=== PATIENT | female | born 1960 | race African-American/Black ===

== ENCOUNTER 2018-01-02 07:21 | Emergency (ER) | payer MEDICARE, MEDICAID ==
[~2018-01-02] VITALS: Ht 170.2 cm; Wt 61.2 kg
[~2018-01-02 07:21] MED LIST: NORCO1 E1 ORAL; PROAIR HFA8.5 GM INH; PROMETHAZINE-C118 M1 ORAL; QVAR7.3 GM INH; SOMA350 MG PO
[2018-01-02 07:35] VITALS: BP 106/65
[2018-01-02] MEDS ORDERED: Albuterol/Ipratropium 3ml neb HHN ONE (08:00)
--- NOTE | 2018-01-02 08:58 | Emergency Room Report ---
History of Present Illness General Chief Complaint: Edema Source: Patient Present Illness HPI Patient is a 57-year-old female presented after increased bilateral lower extremity swelling. Patient reported having gradual onset of swelling which was worse last night. Patient reports having elevated her legs and this had somewhat improved. Patient denies recent trauma. She reports having some chronic low back pain for which she wears a abdominal binder. The patient stated that she had previously been told this was neurogenic edema by her prior physician.Patient denies any vomiting. She denies any shortness of breath. She had not been having any fever. She denied lower extremity pain.She reports having prior history of low back surgery, Gastric bypass as well as prior hysterectomy. Allergies: Coded Allergies: HYDROMORPHONE (Unverified Allergy, Unknown, 02/22/16) MORPHINE (Unverified Allergy, Unknown, 02/22/16) Patient History Past Medical History: see triage record Past Surgical History: unable to obtain Reviewed Nursing Documentation: PMH: Agreed; PSxH: Agreed Review of Systems All Other Systems: negative except mentioned in HPI Physical Exam Vital Signs Date Time Temp Pulse Resp B/P (MAP) Pulse Ox O2 Delivery O2 Flow Rate FiO2 01/02/18 07:25 98.6 88 20 147/71 97 Room Air 98.6 01/02/18 08:13 21 Sp02 EP Interpretation: reviewed, normal General Appearance: normal inspection, well appearing, no apparent distress, alert, GCS 15 Head: atraumatic ENT: normal ENT inspection, hearing grossly normal, normal voice Neck: normal inspection, full range of motion, supple, no bony tend Respiratory: normal inspection, lungs clear, no respiratory distress, no retraction, wheezing Cardiovascular #1: regular rate, rhythm, edema Gastrointestinal: normal inspection, normal bowel sounds, non tender, soft, no guarding, no hernia Genitourinary: no CVA tenderness Musculoskeletal: normal inspection, back normal, normal range of motion Neurologic: normal inspection, alert, oriented x3, responsive, speech normal Psychiatric: normal inspection, judgement/insight normal, mood/affect normal Skin: normal inspection, normal color, no rash Medical Decision Making Diagnostic Impression: Primary Impression: Chronic back pain Additional Impressions: Anemia Pedal edema ER Course Patient presented for bilateral leg pain and swelling.Differential diagnosis included was not limited to obstruction, nephrotic syndrome, CHF, DVT among others.Because of complexity of patient's case laboratory testing and imaging studies were ordered. Laboratory testing was notable for the anemia which was the significant. Patient was advised to laboratory testing. The BNP was also noted to be somewhat elevated. I recommended that patient be admitted for further hemoglobin monitoring and reevaluation and she stated that she did not want to be admitted to the hospital. Patient was given prescription for iron pills. Patient is advised to return if she changed her mind. The patient is advised to follow up with primary care doctor in 1-2 days. Patient is advised to return if any worsening condition or if any changes in status that are concerning. This report is dictated with [employer] shared services representative software which may occasionally lead to discrepancies related to use of this software. Laboratory Tests Test 01/02/18 08:10 01/02/18 09:20 White Blood Count 5.5 K/UL (4.8-10.8) 5.3 K/UL (4.8-10.8) Red Blood Count 2.72 M/UL (4.20-5.40) L 2.63 M/UL (4.20-5.40) L Hemoglobin 8.0 G/DL (12.0-16.0) L 7.9 G/DL (12.0-16.0) L Hematocrit 26.9 % (37.0-47.0) L 26.1 % (37.0-47.0) L Mean Corpuscular Volume 99 FL (80-99) 99 FL (80-99) Mean Corpuscular Hemoglobin 29.3 PG (27.0-31.0) 30.0 PG (27.0-31.0) Mean Corpuscular Hemoglobin Concent 29.7 G/DL (32.0-36.0) L 30.3 G/DL (32.0-36.0) L Red Cell Distribution Width 16.9 % (11.6-14.8) H 16.9 % (11.6-14.8) H Platelet Count 458 K/UL (150-450) H 454 K/UL (150-450) H Mean Platelet Volume 5.9 FL (6.5-10.1) L 5.6 FL (6.5-10.1) L Neutrophils (%) (Auto) 72.6 % (45.0-75.0) % (45.0-75.0) Lymphocytes (%) (Auto) 18.5 % (20.0-45.0) L % (20.0-45.0) Monocytes (%) (Auto) 5.3 % (1.0-10.0) % (1.0-10.0) Eosinophils (%) (Auto) 1.7 % (0.0-3.0) % (0.0-3.0) Basophils (%) (Auto) 1.9 % (0.0-2.0) % (0.0-2.0) Sodium Level 138 MMOL/L (136-145) Potassium Level 4.0 MMOL/L (3.5-5.1) Chloride Level 105 MMOL/L (98-107) Carbon Dioxide Level 26 MMOL/L (21-32) Anion Gap 8 mmol/L (5-15) Blood Urea Nitrogen 13 mg/dL (7-18) Creatinine 1.1 MG/DL (0.55-1.30) Estimate Glomerular Filtration Rate > 60 mL/min (>60) Glucose Level 91 MG/DL (74-106) Calcium Level 8.5 MG/DL (8.5-10.1) Total Bilirubin 0.2 MG/DL (0.2-1.0) Aspartate Amino Transferase (AST) 28 U/L (15-37) Alanine Aminotransferase (ALT) 35 U/L (12-78) Alkaline Phosphatase 72 U/L (46-116) Troponin I 0.000 ng/mL (0.000-0.056) Pro-B-Type Natriuretic Peptide 383 pg/mL (0-125) H Total Protein 7.0 G/DL (6.4-8.2) Albumin 3.3 G/DL (3.4-5.0) L Globulin 3.7 g/dL Albumin/Globulin Ratio 0.9 (1.0-2.7) L Differential Total Cells Counted 100 Neutrophils % (Manual) 71 % (45-75) Lymphocytes % (Manual) 18 % (20-45) L Monocytes % (Manual) 9 % (1-10) Eosinophils % (Manual) 1 % (0-3) Basophils % (Manual) 1 % (0-2) Band Neutrophils 0 % (0-8) Platelet Estimate Increased H Platelet Morphology Normal Hypochromasia 1+ Anisocytosis 1+ Stomatocytes 1+ Urine Color Pale yellow Urine Appearance Clear Urine pH 5 (4.5-8.0) Urine Specific [place] 1.010 (1.005-1.035) Urine Protein Negative (NEGATIVE) Urine Glucose (UA) Negative (NEGATIVE) Urine Ketones Negative (NEGATIVE) Urine Occult Blood Negative (NEGATIVE) Urine Nitrite Negative (NEGATIVE) Urine Bilirubin Negative (NEGATIVE) Urine Urobilinogen Normal MG/DL (0.0-1.0) Urine Leukocyte Esterase Negative (NEGATIVE) Urine RBC 0-2 /HPF (0 - 2) Urine WBC 0-2 /HPF (0 - 2) Urine Squamous Epithelial Cells Occasional /LPF Urine Bacteria Occasional /HPF (NONE) EKG Diagnostic Results Rate: normal Rhythm: NSR ST Segments: no acute changes Chest X-Ray Diagnostic Results Chest X-Ray Diagnostic Results : Chest X-Ray Ordered: Yes # of Views/Limited/Complete: 1 View Indication: Other - cough EP Interpretation: Yes PA Xray: Interpretation reviewed Interpretation: no consolidation, no effusion, no pneumothorax, no acute cardiopulmonary disease Impression: No acute disease Electronically Signed by: Electronically signed by Dr. Lamberto Edward M.D. Last Vital Signs Date Time Temp Pulse Resp B/P (MAP) Pulse Ox O2 Delivery O2 Flow Rate FiO2 01/02/18 08:35 63 12 Room Air 01/02/18 08:34 100 21 01/02/18 07:35 98.6 106/65 98.6 Status: unchanged Disposition: HOME, SELF-CARE Condition: Stable Scripts Ferrous Sulfate (IRON) 325 Mg Tablet 325 MG PO DAILY, #30 TAB Prov: Lamberto Edward 01/02/18 Referrals: NOT CHOSEN IPA/,REFERRING (PCP) Lamberto Edward Jan 02, 2018 08:58
[2018-01-02 09:03] LABS: ANION GAP 8 mmol/L (5-15); BLOOD UREA NITROGEN 13 mg/dL (7-18); CALCIUM 8.5 MG/DL (8.5-10.1); CARBON DIOXIDE 26 MMOL/L (21-32); CHLORIDE 105 MMOL/L (98-107); CREATININE 1.1 MG/DL (0.55-1.30); SODIUM 138 MMOL/L (136-145)
[2018-01-02 09:05] VITALS: BP 112/71
[2018-01-02 09:09] LABS: BASOPHILS % (AUTO) 1.9 % (0.0-2.0); EOSINOPHILS % (AUTO) 1.7 % (0.0-3.0); HEMATOCRIT 26.9 % (37.0-47.0); LYMPHOCYTES % (AUTO) 18.5 % (20.0-45.0); MEAN CORPUSCULAR VOLUME 99 FL (80-99); MONOCYTES % (AUTO) 5.3 % (1.0-10.0); NEUTROPHILS % (AUTO) 72.6 % (45.0-75.0); PLATELET COUNT 458 K/UL (150-450); RED BLOOD COUNT 2.72 M/UL (4.20-5.40); RED CELL DISTRIBUTION WIDTH 16.9 % (11.6-14.8); WHITE BLOOD COUNT 5.5 K/UL (4.8-10.8)
[2018-01-02 09:14] LABS: ALANINE AMINOTRANSFERASE 35 U/L (12-78); ALBUMIN 3.3 G/DL (3.4-5.0); ALBUMIN/GLOBULIN RATIO 0.9 (1.0-2.7); ALKALINE PHOSPHATASE 72 U/L (46-116); ASPARTATE AMINO TRANSFERASE 28 U/L (15-37); BILIRUBIN,TOTAL 0.2 MG/DL (0.2-1.0)
[2018-01-02 09:33] VITALS: BP 148/72
--- NOTE | 2018-01-02 09:33 | Diagnostic Imaging Report ---
Indication: Dyspnea Comparison: 02/22/2016 A single view chest radiograph was obtained. Findings: No definite infiltrate or pulmonary vascular congestion identified. The heart is enlarged. The aorta is mildly enlarged consistent with atherosclerotic vascular disease. The bones are osteopenic. Impression: No acute disease
[2018-01-02 09:36] LABS: APPEARANCE,URINE CLEAR; BILIRUBIN, URINE NEGATIVE (NEGATIVE); COLOR,URINE PALE YELLOW; GLUCOSE, URINE (UA) NEGATIVE (NEGATIVE); KETONES,URINE NEGATIVE (NEGATIVE); LEUKOCYTE ESTERASE ,URINE NEGATIVE (NEGATIVE); NITRITE,URINE NEGATIVE (NEGATIVE); PH,URINE 5 (4.5-8.0); PROTEIN,URINE NEGATIVE (NEGATIVE); UROBILINOGEN,URINE NORMAL MG/DL (0.0-1.0)
[2018-01-02 09:45] LABS: HEMATOCRIT 26.1 % (37.0-47.0); HEMOGLOBIN 7.9 G/DL (12.0-16.0); MEAN CORPUSCULAR VOLUME 99 FL (80-99); PLATELET COUNT 454 K/UL (150-450); RED BLOOD COUNT 2.63 M/UL (4.20-5.40); RED CELL DISTRIBUTION WIDTH 16.9 % (11.6-14.8); WHITE BLOOD COUNT 5.3 K/UL (4.8-10.8)
[2018-01-02] MEDS ORDERED: IRON325 M1 PO (10:37)
[2018-01-02 10:46] VITALS: BP 127/74
[2018-01-02 10:47] VITALS: BP 127/74
--- NOTE | 2018-01-03 12:42 | Diagnostic Imaging Report ---
APPROVED REPORT CPT Code: 14646 Present Symptoms Lower Extremity Pain: Bilateral BILATERAL: Imaging reveals a patent deep venous system bilaterally. There is no evidence of thrombus within the common femoral, proximal superficial femoral, popliteal or tibial segments. The greater saphenous veins are also within normal limits. Doppler indicates normal spontaneous flow within these segments.
== END 2018-01-02 11:02 | disposition home or self-care (01) ==
LOC: EMR 07:53
DX: G89.29 Other chronic pain (principal); M54.9 Dorsalgia, unspecified; Z88.5 Allergy status to narcotic agent; R60.0 Localized edema
CPT/HCPCS: 36415; 71045; 80053; 81001; 83880; 84484; 85007; 85025; 93005; 93970; 94640; 94664; 99284; J7620

== ENCOUNTER 2019-11-10 09:16 | Inpatient (IN) | payer MEDICARE, MEDICAID ==
[~2019-11-10] VITALS: Ht 170.2 cm; Wt 69.0 kg
[2019-11-10] VITALS (8 sets, daily range): BP systolic 167–203; BP diastolic 75–118
[~2019-11-10 09:16] MED LIST changes: +IRON325 M1 PO
--- NOTE | 2019-11-10 09:20 | NUR ---
ED Nurse Note: Pt walked in to Ed due to intermittent pain on left arm for couple days with chills. Per pt, she reports doing blood work on 11/07/19 with her PCP and was given a call from the dr's office for some abnormal labs (unknown which ones). Pt's BP 180/98 mmHg with 71HR in the triage. Pt is A&O x4, rates pain at 5/10.
[2019-11-10] MEDS ORDERED: Hydromorphone 0.5mg/0.5ml inj IVP ONE (09:45)
--- NOTE | 2019-11-10 10:05 | Emergency Room Report ---
History of Present Illness General Chief Complaint: General Complaint Source: Patient Present Illness HPI Patient presents with left shoulder pain. This occurred twice in the middle of the night and woke her up. Initially the pain was severe. Currently she rates the pain 5/10 and radiating from the shoulder somewhat down her left arm. She was at rest when the pain began. She has never felt pain like this before. She has been feeling weak and was told yesterday that labs drawn 3 days ago are abnormal and that she needed to follow-up with an emergency department. She was not told what those labs were. She has kaleb out of breath with exertion. She denies chest pain per se. No fevers or chills. She feels anxious. She is worried about being by herself. Patient occasionally has blood when wiping herself but there is been no melena or hematochezia. She status post gastric bypass in 2006. She had a 290 pound weight loss. Over the last 6 months she had unintentional 10 to 15 pound weight loss. This reversed itself within the last month. She states she drinks beet juice which changes the color of her stool. Patient evaluated December 2017. Hemoglobin of 8. It was suggested she be admitted to the hospital at that time but she declined. Iron was prescribed. The patient has chronic edema. She is on a water pill for blood pressure. She was told to take half more. Edema slightly better after she started doing that. She has postoperative changes of her left lower leg post trauma in 2016. Patient has a history of smoking in the past and COPD. She does hear herself wheezing on occasion. She uses an inhaler. She denies productive cough at this time. The patient takes [place] and BC powder for chronic back pain. She also takes Soma and Zanaflex for muscle spasms. She sees a chronic pain specialist. No sore throat, nausea, vomiting, diarrhea, dysuria, abdominal pain, rashes, depression, visual changes, dizziness, headache. 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 Reviewed Nursing Documentation: PMH: Agreed; PSxH: Agreed Nursing Documentation-PMH Past Medical History: No History, Except For Review of Systems All Other Systems: negative except mentioned in HPI Physical Exam Vital Signs Date Time Temp Pulse Resp B/P (MAP) Pulse Ox O2 Delivery O2 Flow Rate FiO2 11/10/19 09:19 98.1 71 18 180/98 (125) 99 Room Air Sp02 EP Interpretation: reviewed, normal General Appearance: GCS 15, non-toxic, thin, other - Pale Head: normocephalic Eyes: bilateral eye PERRL, bilateral eye conjunctivae pale, bilateral eye other - Exophthalmos ENT: moist mucus membranes Neck: supple Respiratory: chest non-tender, wheezing - Minimal expiratory wheezing Cardiovascular #1: regular rate, rhythm, edema - Left lower extremity Cardiovascular #2: 2+ radial (R) Gastrointestinal: normal inspection, normal bowel sounds, non tender, no mass, non-distended Musculoskeletal: back normal, normal range of motion, no calf tenderness, gait/ station normal, Lorna's Sign negative Neurologic: alert, oriented x3, grossly normal Psychiatric: anxious Skin: warm/dry, pallor Procedures Critical Care Time Critical Care Time Total Critical Care Time: 45 min bedside evaluation and treatment excludes procedures (EKG). Reason for critical care: Symptomatic anemia, COPD, assessment of possible acute coronary syndrome Possible complications: hypotension, hypertension, CO, shock, arrhythmias, metabolic acidosis, end organ damage, respiratory failure. Interventions: Analgesics, muscle relaxants, breathing treatments, repeat evaluations, blood transfusion Course: Patient with left shoulder pain and pallor with unexplained weight loss. Treatment of COPD with breathing treatments. Pain treated. Critical anemia assessed and blood bank notified of need for transfusion. Informed consent for blood transfusion. Breathing treatment repeated. Discussion of elevated blood pressure with admitting physician. Risk and benefit of aspirin administration. Repeated administration of analgesia. Consultations: nursing staff, admitting physician, blood bank Performed by: Dr. Killian Tolerated well condition = serious Medical Decision Making Diagnostic Impression: Primary Impression: Symptomatic anemia Additional Impressions: Left shoulder pain Qualified Codes: M25.512 - Pain in left shoulder Rule/out acute coronary syndrome Unexplained weight loss Bronchospasm COPD (chronic obstructive pulmonary disease) Qualified Codes: J43.9 - Emphysema, unspecified ER Course Patient presents with dyspnea and left arm pain. Also she was told that there significant abnormal labs. Differential includes acute myocardial infarction, acute coronary syndrome, osteoarthritis of the shoulder, exacerbation of chronic pain, severe anemia amongst others. Patient evaluated with EKG, chest x -ray and labs. Patient treated for pain. Most likely the patient is anemic based on her physical exam at this time. EKG sinus rhythm with short GA nonspecific ST-T wave changes. Chest x-ray COPD. 1140 found H/H low. Blood ordered. Initial troponin negative. CMP normal. Patient with wheezing. Breathing treatments ordered. Informed consent for blood transfusion discussed in detail with patient. Blood infusing patient tolerating well. Patient evaluated in the emergency department by admitting physician. Discussion of possible treatment of hypertension with admitting physician. He states he wants us to hold off at this time. Patient admitted telemetry to exclude damage to heart. Laboratory Tests Test 11/10/19 09:35 11/10/19 10:25 11/10/19 18:20 White Blood Count 3.2 K/UL (4.8-10.8) L 3.7 K/UL (4.8-10.8) L Red Blood Count 3.33 M/UL (4.20-5.40) L 3.31 M/UL (4.20-5.40) L Hemoglobin 7.3 G/DL (12.0-16.0) L 7.6 G/DL (12.0-16.0) L Hematocrit 24.5 % (37.0-47.0) L 26.7 % (37.0-47.0) L Mean Corpuscular Volume 74 FL (80-99) L 81 FL (80-99) # Mean Corpuscular Hemoglobin 22.0 PG (27.0-31.0) L 23.0 PG (27.0-31.0) L Mean Corpuscular Hemoglobin Concent 29.8 G/DL (32.0-36.0) L 28.6 G/DL (32.0-36.0) L Red Cell Distribution Width 20.1 % (11.6-14.8) H 23.4 % (11.6-14.8) H Platelet Count 364 K/UL (150-450) 332 K/UL (150-450) Mean Platelet Volume 6.0 FL (6.5-10.1) L 7.2 FL (6.5-10.1) Neutrophils (%) (Auto) % (45.0-75.0) % (45.0-75.0) Lymphocytes (%) (Auto) % (20.0-45.0) % (20.0-45.0) Monocytes (%) (Auto) % (1.0-10.0) % (1.0-10.0) Eosinophils (%) (Auto) % (0.0-3.0) % (0.0-3.0) Basophils (%) (Auto) % (0.0-2.0) % (0.0-2.0) Differential Total Cells Counted 100 100 Neutrophils % (Manual) 64 % (45-75) 62 % (45-75) Lymphocytes % (Manual) 29 % (20-45) 31 % (20-45) Monocytes % (Manual) 5 % (1-10) 6 % (1-10) Eosinophils % (Manual) 2 % (0-3) 1 % (0-3) Basophils % (Manual) 0 % (0-2) 0 % (0-2) Band Neutrophils 0 % (0-8) 0 % (0-8) Platelet Estimate Adequate Adequate Platelet Morphology Normal Normal Hypochromasia 3+ 3+ Anisocytosis 2+ 2+ Microcytosis 2+ 2+ Reticulocyte Count 1.1 % (0.5-2.0) Prothrombin Time 10.0 SEC (9.30-11.50) Prothrombin Time INR 0.9 (0.9-1.1) Activated Partial Thromboplast Time 24 SEC (23-33) Urine Color Pale yellow Urine Appearance Clear Urine pH 6 (4.5-8.0) Urine Specific [place] 1.015 (1.005-1.035) Urine Protein Negative (NEGATIVE) Urine Glucose (UA) Negative (NEGATIVE) Urine Ketones Negative (NEGATIVE) Urine Blood Negative (NEGATIVE) Urine Nitrite Negative (NEGATIVE) Urine Bilirubin Negative (NEGATIVE) Urine Urobilinogen Normal MG/DL (0.0-1.0) Urine Leukocyte Esterase Negative (NEGATIVE) Sodium Level 140 MMOL/L (136-145) Potassium Level 4.1 MMOL/L (3.5-5.1) Chloride Level 103 MMOL/L (98-107) Carbon Dioxide Level 28 MMOL/L (21-32) Anion Gap 10 mmol/L (5-15) Blood Urea Nitrogen 11 mg/dL (7-18) Creatinine 0.7 MG/DL (0.55-1.30) Estimate Glomerular Filtration Rate > 60 mL/min (>60) Glucose Level 87 MG/DL (74-106) Calcium Level 9.4 MG/DL (8.5-10.1) Iron Level 22 ug/dL (50-175) L Total Iron Binding Capacity 550 ug/dL (250-450) H Percent Iron Saturation 4 % (15-50) L Unsaturated Iron Binding 528 ug/dL (112-346) H Total Bilirubin 0.5 MG/DL (0.2-1.0) Aspartate Amino Transferase (AST) 32 U/L (15-37) Alanine Aminotransferase (ALT) 36 U/L (12-78) Alkaline Phosphatase 70 U/L (46-116) Total Creatine Kinase 209 U/L (26-308) Troponin I 0.000 ng/mL (0.000-0.056) Pro-B-Type Natriuretic Peptide 206 pg/mL (0-125) H Total Protein 7.0 G/DL (6.4-8.2) Albumin 3.6 G/DL (3.4-5.0) Globulin 3.4 g/dL Albumin/Globulin Ratio 1.1 (1.0-2.7) Lipase 212 U/L (73-393) Vitamin B12 Level 290 PG/ML (193-986) Folate 20.0 NG/ML (8.6-58.9) EKG Diagnostic Results Rate: normal Rhythm: NSR ST Segments: no acute changes - Short GA nonspecific ST-T wave changes ASA given to the pt in ED: No - Due to low suspicion of acute coronary syndrome and presence of possible occult bleeding Rhythm Strip Diag. Results EP Interpretation: yes Rhythm: NSR, no PVC's, no ectopy Chest X-Ray Diagnostic Results Chest X-Ray Diagnostic Results : Chest X-Ray Ordered: Yes # of Views/Limited/Complete: 1 View Indication: Chest Pain EP Interpretation: Yes Interpretation: no consolidation, no effusion, no pneumothorax, other - COPD Impression: Other Electronically Signed by: Electronically signed by Martín Killian MD Last Vital Signs Date Time Temp Pulse Resp B/P (MAP) Pulse Ox O2 Delivery O2 Flow Rate FiO2 11/10/19 18:11 98.0 80 18 177/110 (132) 100 11/10/19 14:42 Room Air Status: improved Disposition: ADMITTED INPATIENT Condition: Serious Martín Killian MD Nov 10, 2019 10:05
[2019-11-10 10:43] LABS: HEMATOCRIT 24.5 % (37.0-47.0); HEMOGLOBIN 7.3 G/DL (12.0-16.0); MEAN CORPUSCULAR VOLUME 74 FL (80-99); PLATELET COUNT 364 K/UL (150-450); RED BLOOD COUNT 3.33 M/UL (4.20-5.40); RED CELL DISTRIBUTION WIDTH 20.1 % (11.6-14.8); WHITE BLOOD COUNT 3.2 K/UL (4.8-10.8)
[2019-11-10 10:57] LABS: INR 0.9 (0.9-1.1)
[2019-11-10] MEDS ORDERED: TIZANIDINE HCL2 M2 PO (10:59)
[2019-11-10 11:04] LABS: APPEARANCE,URINE CLEAR; BILIRUBIN, URINE NEGATIVE (NEGATIVE); COLOR,URINE PALE YELLOW; GLUCOSE, URINE (UA) NEGATIVE (NEGATIVE); KETONES,URINE NEGATIVE (NEGATIVE); LEUKOCYTE ESTERASE ,URINE NEGATIVE (NEGATIVE); NITRITE,URINE NEGATIVE (NEGATIVE); PH,URINE 6 (4.5-8.0); PROTEIN,URINE NEGATIVE (NEGATIVE); UROBILINOGEN,URINE NORMAL MG/DL (0.0-1.0)
[2019-11-10 11:06] LABS: ANION GAP 10 mmol/L (5-15); BLOOD UREA NITROGEN 11 mg/dL (7-18); CALCIUM 9.4 MG/DL (8.5-10.1); CARBON DIOXIDE 28 MMOL/L (21-32); CHLORIDE 103 MMOL/L (98-107); CREATININE 0.7 MG/DL (0.55-1.30); POTASSIUM 4.1 MMOL/L (3.5-5.1); SODIUM 140 MMOL/L (136-145)
[2019-11-10 11:17] LABS: ALANINE AMINOTRANSFERASE 36 U/L (12-78); ALBUMIN 3.6 G/DL (3.4-5.0); ALBUMIN/GLOBULIN RATIO 1.1 (1.0-2.7); ALKALINE PHOSPHATASE 70 U/L (46-116); ASPARTATE AMINO TRANSFERASE 32 U/L (15-37); BILIRUBIN,TOTAL 0.5 MG/DL (0.2-1.0); CREATINE KINASE 209 U/L (26-308)
[2019-11-10] MEDS ORDERED: Albuterol/Ipratropium 3ml neb HHN ONE (11:45)
--- NOTE | 2019-11-10 13:10 | NUR ---
ED Nurse Note: RN started blood transfusion at 13:10, Pre-Transfusion V/S: Temp 98.8, RR 12; HR 66; B/P 175/76 and verified by two RN's.
[2019-11-10] MEDS ORDERED: oxyCODONE HCL/Acetaminophen 5/325mg ORAL STA (13:39)
[2019-11-10] MEDS ORDERED: HYDROcodone/Acetamin 5/325 tab ORAL PRN (14:00)
[2019-11-10] MEDS ORDERED: Hydromorphone 0.5mg/0.5ml inj IVP PRN (14:00)
--- NOTE | 2019-11-10 14:25 | NUR ---
ED Nurse Note: Patient was transferred to Tele in a gurney accompanied by RN and missile technician, connected to the alumni secretary with all belongings. V/S noted, pt report given to MAJOR Nicholson.
--- NOTE | 2019-11-10 14:30 | NUR ---
NURSE NOTES: Pt transferred to tele from ED via [facility] with RN and bioinformatics research technician. Received report from Valerio GONSALVES from ED. C/O generalized pain 01/03 but refused pain for now. sheriff deputy applied. Admission orders verified with Dr. Tyler. Bed in lowest position and locked. A0X4 and able to make needs known. Call light within easy reach. IV site in right hand with 22G running with 1 unit of blood transfusion. Noted Blood pressure is high but Valerio RN from ED said no meds or intervention given for blood pressure management. Will continue to plan of care.
[2019-11-10] MEDS: HydrALAZINE 25mg tab ORAL PRN (14:43)
--- NOTE | 2019-11-10 15:06 | Diagnostic Imaging Report ---
EXAM: XR Chest, 1 View CLINICAL HISTORY: CP TECHNIQUE: Frontal view of the chest. COMPARISON: Images from prior exam not available at the time of interpretation FINDINGS: Hardware: None. Lungs/pleura: Normal. No focal consolidation. No pleural effusion or pneumothorax. Heart/mediastinum: Atherosclerotic calcifications in the aorta. No cardiomegaly. Soft tissues: Unremarkable. Bones: No acute fracture. Upper abdomen: Normal. IMPRESSION: No acute disease identified.
[2019-11-10 15:22] LABS: % IRON SATURATION 4 % (15-50); IRON 22 ug/dL (50-175); TOTAL IRON BINDING CAPACITY 550 ug/dL (250-450)
[2019-11-10] MEDS ORDERED: Sorbitol Solution UD 30ml ORAL SCH (15:45)
[2019-11-10] MEDS: Hydromorphone 0.5mg/0.5ml inj IVP PRN ×2 (16:25→20:35)
--- NOTE | 2019-11-10 16:44 | NUR ---
NURSE NOTES: Noted hypertension with BP 186/91, HR 80. Hydralazine 25mg po given @1443 and the patient c/o generalized pain 8/10. Dr. Tyler notified. No new orders for elevated BP, administer pain meds as ordered and 1 unit of blood transfusion only today ordered.
--- NOTE | 2019-11-10 18:11 | NUR ---
NURSE NOTES: Pt c/o generalized reyna 06/05 and noted her blood pressure 177/110. Dr. Tyler paged and awaiting for reply
[2019-11-10 19:02] LABS: HEMATOCRIT 26.7 % (37.0-47.0); HEMOGLOBIN 7.6 G/DL (12.0-16.0); MEAN CORPUSCULAR VOLUME 81 FL (80-99); PLATELET COUNT 332 K/UL (150-450); RED BLOOD COUNT 3.31 M/UL (4.20-5.40); RED CELL DISTRIBUTION WIDTH 23.4 % (11.6-14.8); WHITE BLOOD COUNT 3.7 K/UL (4.8-10.8)
--- NOTE | 2019-11-10 19:31 | NUR ---
HAND-OFF: Report given to Nunu GONSALVES. Pt remains stable
--- NOTE | 2019-11-10 19:55 | NUR ---
NURSE NOTES: Received patient from Bharat RN, patient in stable condition, AOx4, in pain, IV on R wrist asymptomatic, intact, bed low and locked, call light within reach , will continue to monitor and reassess
[2019-11-10] MEDS: Iron Sucrose 100 MG in NS 55 ML IV SCH (21:04)
[2019-11-11] VITALS: BP 156/79
[2019-11-11] MEDS: Hydromorphone 0.5mg/0.5ml inj IVP PRN ×4 (01:12→13:14)
[2019-11-11 04:00] VITALS: BP 168/85
[2019-11-11] MEDS: HydrALAZINE 25mg tab ORAL PRN ×2 (05:16→21:45)
[2019-11-11] MEDS ORDERED: Sorbitol Solution UD 30ml ORAL SCH (06:00)
--- NOTE | 2019-11-11 06:56 | NUR ---
HAND-OFF: Report given to Min RN,patient in stable condition, plan of care endorsed.
--- NOTE | 2019-11-11 07:00 | NUR ---
NURSE NOTES: Received report from Nunu GONSALVES. Pt in bed awake and orientedx4. On room air. No c/o pain. IV site 22G patent and intact. Denied SOB. Side rails x2 up for safety. Call light within easy reach. Will continue to plan of care.
[2019-11-11 08:00] VITALS: BP 192/112
[2019-11-11 08:07] LABS: BASOPHILS % (AUTO) 1.9 % (0.0-2.0); EOSINOPHILS % (AUTO) 1.8 % (0.0-3.0); HEMATOCRIT 30.2 % (37.0-47.0); HEMOGLOBIN 9.5 G/DL (12.0-16.0); LYMPHOCYTES % (AUTO) 16.2 % (20.0-45.0); MEAN CORPUSCULAR VOLUME 78 FL (80-99); MONOCYTES % (AUTO) 10.2 % (1.0-10.0); NEUTROPHILS % (AUTO) 69.7 % (45.0-75.0); PLATELET COUNT 310 K/UL (150-450); RED BLOOD COUNT 3.89 M/UL (4.20-5.40); RED CELL DISTRIBUTION WIDTH 21.2 % (11.6-14.8); WHITE BLOOD COUNT 5.8 K/UL (4.8-10.8)
[2019-11-11 09:37] LABS: ALANINE AMINOTRANSFERASE 41 U/L (12-78); ALBUMIN 3.6 G/DL (3.4-5.0); ALKALINE PHOSPHATASE 82 U/L (46-116); ANION GAP 15 mmol/L (5-15); ASPARTATE AMINO TRANSFERASE 35 U/L (15-37); BILIRUBIN,TOTAL 1.2 MG/DL (0.2-1.0); BLOOD UREA NITROGEN 7 mg/dL (7-18); CALCIUM 9.4 MG/DL (8.5-10.1); CARBON DIOXIDE 25 MMOL/L (21-32); CHLORIDE 103 MMOL/L (98-107); CREATININE 0.7 MG/DL (0.55-1.30); POTASSIUM 3.9 MMOL/L (3.5-5.1); SODIUM 142 MMOL/L (136-145)
[2019-11-11 09:40] LABS: BILIRUBIN,DIRECT 0.2 MG/DL (0.0-0.3)
--- NOTE | 2019-11-11 10:27 | General Progress Note ---
Assessment/Plan Assessment/Plan: Assessment - Anemia - s/p gastric bypass - HTN - COPD - Iron deficiency Recommendations - IV Fe - monitor labs - H2B - EGD/Colon in am Subjective Allergies: Coded Allergies: MEPERIDINE (Verified Allergy, Unknown, 11/10/19) MORPHINE (Unverified Allergy, Unknown, 02/22/16) Subjective (+) BM with prep no abd pain Objective Last 24 Hour Vital Signs Date Time Temp Pulse Resp B/P (MAP) Pulse Ox O2 Delivery O2 Flow Rate FiO2 11/11/19 08:57 192 112/86 11/11/19 08:00 98.6 86 20 192/112 (138) 95 11/11/19 05:16 180/101 11/11/19 04:00 98.1 78 18 168/85 (112) 98 11/11/19 04:00 64 11/11/19 00:00 99.2 74 18 156/79 (104) 98 11/11/19 00:00 82 11/10/19 23:17 87 181/79 11/10/19 21:00 Room Air 11/10/19 20:00 82 11/10/19 20:00 98.6 79 18 167/95 (119) 100 11/10/19 18:11 98.0 80 18 177/110 (132) 100 11/10/19 16:30 98.1 76 18 186/91 (122) 100 11/10/19 16:00 89 11/10/19 16:00 98.6 80 18 188/92 (124) 100 11/10/19 14:43 203/118 11/10/19 14:42 Room Air 11/10/19 14:41 98.6 77 18 203/118 (146) 98 11/10/19 14:30 72 11/10/19 14:25 98.8 65 15 167/75 100 Room Air 11/10/19 13:25 98.1 65 15 11/10/19 13:20 98.1 65 18 175/75 99 Room Air 11/10/19 13:10 98.8 66 12 11/10/19 12:43 98.1 11/10/19 11:54 67 14 98 Room Air 63 12 94 11/10/19 11:20 98.1 69 22 191/77 99 Room Air 11/10/19 11:20 98.1 Intake and Output 11/10/19 11/11/19 19:00 07:00 Intake Total 120 ml 220 ml Balance 120 ml 220 ml Intake Oral 120 ml Other 220 ml # Voids 1 11 # Bowel Movements 2 Laboratory Tests 11/10/19 10:25: Reticulocyte Count 1.1, Prothrombin Time 10.0, Prothromb Time International Ratio 0.9, Activated Partial Thromboplast Time 24, Urine Color Pale yellow, Urine Appearance Clear, Urine pH 6, Urine Specific Randolph 1.015, Urine Protein Negative, Urine Glucose (UA) Negative, Urine Ketones Negative, Urine Blood Negative, Urine Nitrite Negative, Urine Bilirubin Negative, Urine Urobilinogen Normal, Urine Leukocyte Esterase Negative, Sodium Level 140, Potassium Level 4.1 , Chloride Level 103, Carbon Dioxide Level 28, Anion Gap 10, Blood Urea Nitrogen 11, Creatinine 0.7, Estimat Glomerular Filtration Rate > 60, Glucose Level 87, Calcium Level 9.4, Iron Level 22L, Total Iron Binding Capacity 550H, Percent Iron Saturation 4L, Unsaturated Iron Binding 528H, Total Bilirubin 0.5, Aspartate Amino Transf (AST/SGOT) 32, Alanine Aminotransferase (ALT/SGPT) 36, Alkaline Phosphatase 70, Total Creatine Kinase 209, Troponin I 0.000, Pro-B- Type Natriuretic Peptide 206H, Total Protein 7.0, Albumin 3.6, Globulin 3.4, Albumin/Globulin Ratio 1.1, Lipase 212, Vitamin B12 Level 290, Folate 20.0 11/10/19 18:20: White Blood Count 3.7L, Red Blood Count 3.31L, Hemoglobin 7.6L, Hematocrit 26.7L , Mean Corpuscular Volume 81#, Mean Corpuscular Hemoglobin 23.0L, Mean Corpuscular Hemoglobin Concent 28.6L, Red Cell Distribution Width 23.4H, Platelet Count 332, Mean Platelet Volume 7.2, Neutrophils (%) (Auto) , Lymphocytes (%) (Auto) , Monocytes (%) (Auto) , Eosinophils (%) (Auto) , Basophils (%) (Auto) , Differential Total Cells Counted 100, Neutrophils % ( Manual) 62, Lymphocytes % (Manual) 31, Monocytes % (Manual) 6, Eosinophils % ( Manual) 1, Basophils % (Manual) 0, Band Neutrophils 0, Platelet Estimate Adequate, Platelet Morphology Normal, Hypochromasia 3+, Anisocytosis 2+, Microcytosis 2+ 11/11/19 05:35: Sodium Level 142, Potassium Level 3.9, Chloride Level 103, Carbon Dioxide Level 25, Anion Gap 15, Blood Urea Nitrogen 7, Creatinine 0.7, Estimat Glomerular Filtration Rate > 60, Glucose Level 90, Calcium Level 9.4, Total Bilirubin 1.2H , Aspartate Amino Transf (AST/SGOT) 35, Alanine Aminotransferase (ALT/SGPT) 41, Alkaline Phosphatase 82, Troponin I 0.002, Total Protein 7.2, Albumin 3.6, Globulin 3.6, Albumin/Globulin Ratio 1.0, White Blood Count 5.8#, Red Blood Count 3.89L, Hemoglobin 9.5L, Hematocrit 30.2L, Mean Corpuscular Volume 78L, Mean Corpuscular Hemoglobin 24.5L, Mean Corpuscular Hemoglobin Concent 31.5L, Red Cell Distribution Width 21.2H, Platelet Count 310, Mean Platelet Volume 6.0L , Neutrophils (%) (Auto) 69.7, Lymphocytes (%) (Auto) 16.2L, Monocytes (%) (Auto ) 10.2H, Eosinophils (%) (Auto) 1.8, Basophils (%) (Auto) 1.9, Direct Bilirubin 0.2, Carcinoembryonic Antigen [Pending], Vitamin D 25-Hydroxy [Pending], 25- Hydroxy Vitamin D2 [Pending], 25-Hydroxy Vitamin D3 [Pending], Thyroid Stimulating Hormone (TSH) 2.956 Height (Feet): 5 Height (Inches): 7.00 Weight (Pounds): 138 Objective Thin AA woman NCAT supple CTA RRR Abd soft , Flat no edema Swati Sanz MD Nov 11, 2019 10:27
[2019-11-11] MEDS ORDERED: Nulytely 4L ORAL ONE (11:00)
[2019-11-11 12:00] VITALS: BP 179/98
[2019-11-11 16:00] VITALS: BP 193/96
--- NOTE | 2019-11-11 16:00 | NUR ---
NURSE NOTES: Dr. Tyler notified in regards to high blood pressure. IV dilaudid increased to 1mg for pain management. Per doctor, high blood pressure related to PAIN
[2019-11-11] MEDS: HYDROmorphone 1mg/ml Carpuject IVP PRN ×2 (17:26→21:29)
--- NOTE | 2019-11-11 19:13 | NUR ---
HAND-OFF: Report given to Nunu GONSALVES. Pt remains stable.
--- NOTE | 2019-11-11 19:26 | NUR ---
NURSE NOTES: Received patient from Bharat RN, patient in stable condition, AOx4, in pain, L forearm asymptomatic, intact, bed low and locked, call light within reach , will continue to monitor and reassess
[2019-11-11 20:00] VITALS: BP 192/96
[2019-11-11] MEDS: Iron Sucrose 100 MG in NS 55 ML IV SCH (21:04)
[2019-11-12] VITALS (11 sets, daily range): BP systolic 124–186; BP diastolic 71–109
--- NOTE | 2019-11-12 01:01 | Progress Note ---
DATE: 11/11/2019 CARDIOLOGY PROGRESS NOTE SUBJECTIVE: The patient is complaining of back and leg pain. She is also hungry and is on a liquid diet in anticipation of panendoscopy. Blood pressure is labile and elevated frequently and she attributes this to her pain. Monitored rhythm sinus. PHYSICAL EXAMINATION: VITAL SIGNS: Blood pressure 156/79 up to 192/112, height rate in 64 to 86, respiratory rate 18 to 20. The patient is afebrile. HEENT: Temporal wasting. Pale conjunctivae. Oropharynx clear. NECK: Supple. LUNGS: Clear. CARDIAC: Regular rhythm and rate. Normal S1, S2 with a fourth heart sound. ABDOMEN: Soft. No edema. LABORATORY DATA: White count 5.8, hemoglobin 9.5 following transfusion. Troponin negative. BUN 7, creatinine 0.7. Potassium 3.9. TSH 2.9, B12 290. IMPRESSION: 1. Severe iron deficiency anemia. 2. Weight loss. 3. Rectal bleeding. 4. Chronic left shoulder, back, and leg pain due to osteoarthritis and degenerative disk disease. 5. Narcotic analgesic dependence. PLAN: 1. Maintenance of IV fluids. 2. Bowel regimen. Await panendoscopy. 3. Vitamin replacement including iron and B12 supplement. Await remainder of anemia panel. 4. Consider further imaging studies to follow. Martín Tyler M.D. DR: DARRELL JOB#: [id number] CC:
[2019-11-12] MEDS: HYDROmorphone 1mg/ml Carpuject IVP PRN ×5 (01:21→22:25)
[2019-11-12] MEDS: HydrALAZINE 25mg tab ORAL PRN ×3 (05:36→19:58)
[2019-11-12] MEDS ORDERED: Lidocaine 1% Plain 30 ml INJ ONE (06:54)
[2019-11-12] MEDS ORDERED: LR 1000ml 1,000 ML IVLG SCH ×2 (07:10→09:00)
--- NOTE | 2019-11-12 07:13 | Anethesia Preoperative Eval ---
Anesthesia Pre-op PMH/ROS General Date of Evaluation: Nov 12, 2019 Time of Evaluation: 09:59 Anesthesiologist: Mariya ASA Score: ASA 3 Mallampati Score Class I : Soft palate, uvula, fauces, pillars visible Class II: Soft palate, uvula, fauces visible Class III: Soft palate, base of uvula visible Class IV: Only hard plate visible Mallampati Classification: Class II Surgeon: Yvon Diagnosis: Abd Pain Surgical Procedure: EGD/Colonoscopy Anesthesia History: none Social History: smoking Family History: no anesthesia problems Allergies: Coded Allergies: MEPERIDINE (Verified Allergy, Unknown, 11/10/19) MORPHINE (Unverified Allergy, Unknown, 02/22/16) Medications: see eMAR Patient NPO?: Yes Past Medical History Cardiovascular: Reports: HTN Neurologic/Psychiatric: Reports: depression/anxiety Musculoskeletal/Integumentary: Reports: OA, other - Chronic Back Pain PSxH Narrative: L TKR Anesthesia Pre-op Phys. Exam Physician Exam Last Vital Signs Date Time Temp Pulse Resp B/P (MAP) Pulse Ox O2 Delivery O2 Flow Rate FiO2 11/12/19 05:36 169/90 11/12/19 04:00 98.2 77 16 98 11/11/19 21:00 Room Air Constitutional: NAD Neurologic: CN 2-12 intact Cardiovascular: RRR Respiratory: CTA Gastrointestinal: S/NT/ND Airway Exam Mallampati Score: Class II MO: full ROM: limited Teeth: missing, intact Anesthesia Pre-op A/P Risk Assessment & Plan Assessment: ASA 3 Plan: TIVA Status Change Before Surgery: No Fam Meraz MD Nov 12, 2019 07:13
[2019-11-12] MEDS ORDERED: Labetalol 5mg/ml 20ml vial IV PRN (07:15)
[2019-11-12] MEDS ORDERED: DiphenhydrAMINE 50mg/ml Inj IVP PRN (07:15)
[2019-11-12] MEDS ORDERED: LORazepam Inj 2mg/ml 1ml IV PRN (07:15)
[2019-11-12] MEDS ORDERED: Metoclopramide 10mg/2ml Inj IVP PRN (07:15)
[2019-11-12] MEDS ORDERED: Ketorolac 30mg Inj IV PRN ×2 (07:15)
[2019-11-12] MEDS ORDERED: Atropine Sulfate 0.4mg/ml inj IVP PRN (07:15)
[2019-11-12] MEDS ORDERED: Midazolam 2mg/2ml Inj IVP PRN (07:15)
--- NOTE | 2019-11-12 07:40 | NUR ---
NURSE NOTES: Received report from Nunu GONSALVES. Pt in bed awake and orientedx4 and able to make needs known. Call light within easy reach. Side railsx2 up for safety. Will continue to plan of care.
--- NOTE | 2019-11-12 07:44 | Immediate Post-Op Evaluation ---
Immediate Post-Op Evalulation Immediate Post-Op Evalulation Procedure: EGD/Colonoscopy Date of Evaluation: Nov 12, 2019 Time of Evaluation: 11:10 IV Fluids: 300 LR Blood Products: 0 Estimated Blood Loss: 3 Urinary Output: 0 Blood Pressure Systolic: 130 Blood Pressure Diastolic: 77 Pulse Rate: 72 Respiratory Rate: 16 O2 Sat by Pulse Oximetry: 100 Temperature (Fahrenheit): 98.6 Pain Score (1-10): 1 Nausea: No Vomiting: No Complications 0 Patient Status: awake, reacts, patent, none Hydration Status: adequate Fam Meraz MD Nov 12, 2019 07:44
--- NOTE | 2019-11-12 07:44 | NUR ---
NURSE NOTES: Reminded the patient for keeping NPO for procedure today.
--- NOTE | 2019-11-12 07:46 | 48 Hour Post Anesthesia Eval ---
Post Anesthesia Evaluation Procedure: EGD/Colonoscopy Date of Evaluation: Nov 12, 2019 Time of Evaluation: 13:32 Blood Pressure Systolic: 164 0: 89 Pulse Rate: 74 Respiratory Rate: 18 Temperature (Fahrenheit): 98.6 O2 Sat by Pulse Oximetry: 99 Airway: patent Nausea: No Vomiting: No Pain Intensity: 1 Hydration Status: adequate Cardiopulmonary Status: Stable Mental Status/LOC: patient returned to baseline Follow-up Care/Observations: 0 Post-Anesthesia Complications: 0 Follow-up care needed: ready to discharge Fam Meraz MD Nov 12, 2019 07:45
[2019-11-12 08:00] LABS: BASOPHILS % (AUTO) 1.8 % (0.0-2.0); EOSINOPHILS % (AUTO) 2.8 % (0.0-3.0); HEMATOCRIT 29.1 % (37.0-47.0); HEMOGLOBIN 9.2 G/DL (12.0-16.0); LYMPHOCYTES % (AUTO) 29.4 % (20.0-45.0); MEAN CORPUSCULAR VOLUME 78 FL (80-99); MONOCYTES % (AUTO) 10.5 % (1.0-10.0); NEUTROPHILS % (AUTO) 55.6 % (45.0-75.0); PLATELET COUNT 241 K/UL (150-450); RED BLOOD COUNT 3.74 M/UL (4.20-5.40); RED CELL DISTRIBUTION WIDTH 21.6 % (11.6-14.8); WHITE BLOOD COUNT 4.4 K/UL (4.8-10.8)
--- NOTE | 2019-11-12 09:30 | NUR ---
NURSE NOTES: Pt picked up by transporter for EGD/Colonoscopy via gurney.
[2019-11-12] MEDS ORDERED: Propofol 200mg/20ml IV ONE (10:00)
[2019-11-12] MEDS ORDERED: LR 1000ml ONE (10:00)
[2019-11-12] MEDS ORDERED: NS 500ML IVPB ONE (10:00)
--- NOTE | 2019-11-12 10:05 | Pre-Procedure Note/Attestation ---
Pre-Procedure Note/Attestation Complete Prior to Procedure Planned Procedure: not applicable Procedure Narrative: esophagogastroduodenoscopy colon Indications for Procedure Pre-Operative Diagnosis: anemia Attestation I attest that I discussed the nature of the procedure; its benefits; risks and complications; and alternatives (and the risks and benefits of such alternatives ), prior to the procedure, with the patient (or the patient's legal public health representative). I attest that, if there was a reasonable possibility of needing a blood transfusion, the patient (or the patient's legal public health representative) was given the [facility] standardized written summary, pursuant to the [place] Blood Safety Act ([place] Health and Safety Code # 1645, as amended). I attest that I re-evaluated the patient just prior to the surgery and that there has been no change in the patient's H&P, except as documented below: Swati Sanz MD Nov 12, 2019 10:05
[2019-11-12] MEDS ORDERED: Vitamin D 1000 IU Tab ORAL SCH ×2 (11:15→13:00)
[2019-11-12] MEDS ORDERED: Vitamin B12 1000mcg/ml Inj IM SCH ×2 (11:15→14:00)
--- NOTE | 2019-11-12 11:44 | NUR ---
NURSE NOTES: Received report from Tamanna Meeks RN GI lab. Pt returned back from EGD/Colocoscopy. Pt in bed asleep but easily arousable. Bed in lowest position and locked. No lesion or bleeding found during the procedure.
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
--- NOTE | 2019-11-12 18:30 | NUR ---
NURSE NOTES: received report from RN Min. Received patient in bed, in stable condition, in room air, ambulatory, oriented x4, pain adressed by RN Min, given dilaudid IV. VS taken.
--- NOTE | 2019-11-12 18:30 | NUR ---
HAND-OFF: Report given to Jessica GONSALVES. Pt remains stable.
[2019-11-12] MEDS ORDERED: HYDROcodone/Acetamin 5/325 tab ORAL PRN (18:36)
--- NOTE | 2019-11-12 19:30 | NUR ---
HAND-OFF: Report given to MAJOR Javier.
--- NOTE | 2019-11-12 19:50 | NUR ---
NURSE NOTES: Received report from MAJOR Lopez. Patient a/a/o x 4, breathing unlabored on room air without distress. Has temperature of 100.3 and blood pressure reading 166/109 at this time. Given PRN blood pressure medication for SBP greater than 150 and provided ice packs for elevated temperature at this time. patient refused medication for elevated temperature. verbalizes chronic pain on the back. will follow up with prescribed pain management. iv noted on the left forearm intact, dry, clean, and patent. bed placed at the lowest with alarm, brake, and siderails up for safety. call light placed within reach. will continue to monitor and provide care as ordered.
--- NOTE | 2019-11-12 20:31 | Consultation ---
DATE OF CONSULTATION: 11/10/2019 GASTROENTEROLOGY CONSULTATION CHIEF COMPLAINT: I was asked to see this patient by Dr. Martín Tyler for evaluation of severe anemia. HISTORY OF PRESENT ILLNESS: The patient is a 59-year-old woman with a longstanding history of joint pain, on chronic narcotics, who comes in due to weakness and leg and back pain. The patient denies any abdominal pain, nausea, vomiting, diarrhea, or hematochezia. She states she has had colonoscopy in 2006 before her bariatric surgery. At that time, she underwent a Alirio-en-Y gastric bypass surgery and she recovered uneventfully. The patient does not take any iron supplementation. PAST MEDICAL HISTORY: Known for the history of morbid obesity, status post gastric bypass surgery and history of chronic pain due to the musculoskeletal issues. FAMILY HISTORY: Noncontributory. SOCIAL HISTORY: The patient does not smoke. ALLERGIES: Morphine and Demerol. REVIEW OF SYSTEMS: Otherwise negative. PHYSICAL EXAMINATION: GENERAL: A thin, woman, seen in her room. HEENT: Normocephalic and atraumatic. Sclerae anicteric. Oropharynx clear. NECK: Supple. CHEST: Clear to auscultation. CARDIOVASCULAR: Revealed a regular rate. ABDOMEN: Soft without tenderness. EXTREMITIES: Revealed no edema. LABORATORY DATA: Noted. ASSESSMENT: This patient presents with severe microcytic iron deficiency anemia. Given her age, she should undergo both endoscopy and colonoscopy to evaluate the upper GI tract and also to evaluate the source of blood loss if any. This patient does have a gastric bypass anatomy and therefore iron malabsorption may potentially be the underlying pathology. I will check a stool for occult blood to test for blood loss. However, regardless she does qualify for an endoscopic evaluation to rule out other lesions, which could be contributing to her anemia. RECOMMENDATIONS: 1. Begin gastrointestinal preparation. 2. Check stool for occult blood. 3. Endoscopy and colonoscopy next week. 4. Transfuse as needed. 5. Iron supplementation intravenously. 6. Histamine 2 lona. Thank you for asking me to participate in the care of this patient. Swati Sanz M.D. DR: Marli JOB#: [id number] CC:
[2019-11-12] MEDS: Iron Sucrose 100 MG in NS 55 ML IV SCH (21:00)
--- NOTE | 2019-11-12 21:15 | Endoscopy Procedure Note ---
Endoscopy Procedure Note General Indication for Procedure: anemia Procedures Performed: EGD, colonoscopy Operative Findings/Diagnosis: isadora esoph, ARLEEN, normal colon Specimen: yes Pt Tolerated Procedure Well: Yes Estimated Blood Loss: none Anesthesia Anesthesiologist: see report Anesthesia: MAC Inserted Devices Implant(s) used?: No GI Core Measures 50 yrs or older w/o bx or poly: Not Applicable 10yrs. F/U recommended: Not Applicable If not recommended, why?: Swati Sanz MD Nov 12, 2019 21:15
--- NOTE | 2019-11-12 21:17 | Brief Operative Note ---
Immediate Post Operative Note Operative Note Chief Complaint: anemia. Pre-op Diagnosis: anemia Procedure: esophagogastroduodenoscopy colon Post-op Diagnosis: isadora SB bx, normal colon Surgeon: christiano Anesthesiologist: see report Anesthesia: MAC Specimen: yes Complications: none Condition: unstable Fluids: see report Estimated Blood Loss: none Implant(s) used?: No Swati Sanz MD Nov 12, 2019 21:17
--- NOTE | 2019-11-12 22:00 | NUR ---
NURSE NOTES: temperature reading 99.5 orally at this time. will continue to monitor.
--- NOTE | 2019-11-12 22:30 | Operative Note - Dictated ---
DATE OF OPERATION: 11/12/2019 GASTROENTEROLOGY PROCEDURE REPORT PROCEDURE: Upper gastrointestinal endoscopy with enteroscopy and biopsy as well as colonoscopy. SURGEON: Swati Sanz M.D. ANESTHESIA: Please see the separate anesthesiologist notes for details. PREOPERATIVE DIAGNOSIS: Anemia. POSTOPERATIVE DIAGNOSES: 1. Mild Ariana esophageal colonization. 2. Status post Alirio-en-Y gastric bypass surgery as expected with 5 cm gastric pouch. 3. Status post random biopsies of the small bowel. 4. Normal colonoscopy. DESCRIPTION OF PROCEDURE: The procedure, its risks, indications, alternatives, and possible complications were explained and informed consent was obtained. The patient was then sedated in the left lateral decubitus position and a diagnostic upper endoscope was introduced through the oropharynx and advanced to the small bowel. The endoscope was then gradually withdrawn. The mucosa examined very carefully. Examination of the upper gastrointestinal mucosa revealed the Alirio-en-Y gastric bypass with 5 cm pouch. Mild Ariana esophageal colonization. Biopsies of the small bowel sent to pathology for review. The colonoscope was introduced into the rectum and advanced to cecum. The colonic mucosa did not reveal any abnormalities except for very mild diverticulosis. The colonoscope was removed. The patient was sent to recovery in good condition. COMPLICATIONS: None. RECOMMENDATIONS: 1. Nystatin trial. 2. Check HIV test. 3. Monitor CBC. 4. The patient will be advised that the excluded pouch can be seen with a double-balloon endoscopy at [facility]. Thank you for asking me to participate in the care of this patient. Swati Sanz M.D. DR: RANDALL JOB#: [id number] CC: ELIER
[2019-11-13] VITALS: BP 141/96
--- NOTE | 2019-11-13 00:45 | NUR ---
NURSE NOTES: Informed Dr. Tyler regarding patient's elevating temperature. Received order for tylenol 650 mg PO Q4H PRN for mild pain/temp greater than 100.5 and to collect blood culture x 1 if temperature elevates to 100.6. will carry out the order and continue to monitor the patient.
--- NOTE | 2019-11-13 02:15 | Progress Note ---
DATE: 11/12/2019 CARDIOLOGY AND INTERNAL MEDICINE PROGRESS NOTE SUBJECTIVE: The patient is hungry. She is status post endoscopy and colonoscopy. Findings discussed with Dr. Sanz. No source of bleeding seen. Possible Ariana of the oral cavity noted. The patient also noted left eye irritation following the procedure. PHYSICAL EXAMINATION: VITAL SIGNS: Blood pressure 166/91, heart rate 88, respiratory rate 18, and temperature max 100.3. HEENT: Slight erythema, left eye. LUNGS: Clear. CARDIAC: Regular. No new murmur. ABDOMEN: Soft with slight distention. EXTREMITIES: Without edema. IMPRESSION: 1. Severe iron deficiency anemia. 2. Weight loss. 3. History of bariatric surgery. 4. B12 deficiency. 5. Pending vitamin D levels. 6. Possible early conjunctivitis of the left eye. 7. Labile hypertension. 8. Chronic pain due to degenerative disk disease and osteoarthritis. PLAN: 1. Iron replacement. 2. Await cultures. 3. Antifungal therapy could be considered. 4. Await vitamin D and CEA levels. 5. Nutritional support. 6. Outpatient GI followup will be arranged. 7. Local care to the left eye. 8. Titrate antihypertensives. Martín Tyler M.D. DR: KRAIG JOB#: [id number] CC:
[2019-11-13] MEDS: HYDROmorphone 1mg/ml Carpuject IVP PRN ×6 (02:25→23:04)
[2019-11-13 04:00] VITALS: BP 158/81
[2019-11-13] MEDS: HydrALAZINE 25mg tab ORAL PRN (04:33)
[2019-11-13 07:25] LABS: BASOPHILS % (AUTO) 0.4 % (0.0-2.0); EOSINOPHILS % (AUTO) 0.2 % (0.0-3.0); HEMATOCRIT 28.6 % (37.0-47.0); HEMOGLOBIN 8.9 G/DL (12.0-16.0); LYMPHOCYTES % (AUTO) 8.8 % (20.0-45.0); MEAN CORPUSCULAR VOLUME 78 FL (80-99); MONOCYTES % (AUTO) 6.1 % (1.0-10.0); NEUTROPHILS % (AUTO) 84.5 % (45.0-75.0); PLATELET COUNT 200 K/UL (150-450); RED BLOOD COUNT 3.68 M/UL (4.20-5.40); RED CELL DISTRIBUTION WIDTH 22.2 % (11.6-14.8); WHITE BLOOD COUNT 11.4 K/UL (4.8-10.8)
[2019-11-13 07:37] LABS: ALANINE AMINOTRANSFERASE 32 U/L (12-78); ALBUMIN 3.3 G/DL (3.4-5.0); ALKALINE PHOSPHATASE 71 U/L (46-116); ANION GAP 7 mmol/L (5-15); ASPARTATE AMINO TRANSFERASE 26 U/L (15-37); BILIRUBIN,TOTAL 0.8 MG/DL (0.2-1.0); BLOOD UREA NITROGEN 7 mg/dL (7-18); CALCIUM 9.3 MG/DL (8.5-10.1); CARBON DIOXIDE 30 MMOL/L (21-32); CHLORIDE 102 MMOL/L (98-107); CREATININE 0.8 MG/DL (0.55-1.30); POTASSIUM 3.7 MMOL/L (3.5-5.1); SODIUM 139 MMOL/L (136-145)
--- NOTE | 2019-11-13 07:39 | NUR ---
HAND-OFF: Report given to MAJOR Tijerina. Plan of care endorsed.
--- NOTE | 2019-11-13 07:43 | NUR ---
NURSE NOTES: Received patient in bed awake. No SOB or acute distress. IV line intact and patent. HOB elevated. Bed locked in lowest position. Call light within reach. Will continue plan of care.
[2019-11-13 08:00] VITALS: BP 169/109
[2019-11-13] MEDS: Nystatin Susp 500,000 units/5ml ORAL SCH ×4 (09:40→21:06)
[2019-11-13] MEDS: Vitamin B12 1000mcg/ml Inj IM SCH (09:41)
[2019-11-13] MEDS: Vitamin D 1000 IU Tab ORAL SCH (09:41)
--- NOTE | 2019-11-13 10:28 | Diagnostic Imaging Report ---
Indication: Cough Technique: 2 views of the chest Comparison: 11/10/2019 Findings: Lungs and pleural spaces are clear. The heart size is normal. The bones are unremarkable.. The aorta is tortuous ectatic and calcified. No significant interim change. Impression: No acute process
[2019-11-13 12:00] VITALS: BP 107/70
--- NOTE | 2019-11-13 15:18 | NUR ---
CASE MANAGEMENT:INITIAL REVIEW 11/10/2019 59 YR OLD FEMALE FROM HOME CC;GENERAL COMPLAINT. SI;SYMPTOMATIC ANEMIA. BRONCHOSPASM. UNEXPLAINED WEIGHT LOSS. LT SHOULDER PAIN. 98.8 65 22 191/77 94% ON RA WBC 3.2 H/H 7.3/24.5 IRON 22 TIBC 550 CXR - NEGATIVE IS;ZOFRAN IV ONCE DUO NEB HHN ONCE TINAZIDINE PO ONE DILAUDID IV ONCE ADMITTED TO MED SURG MED SURG STATUS DCP;FROM HOME CASE MANAGEMENT:REVIEW 11/12/2019 SI;SEVERE IRON DEFICIENCY. WEIGHT LOSS. CHRONIC PAIN. 98.6 74 19 97% 6L SIMPLE MASK NO LABS IS;IRON SUCROSE IV HS ZOFRAN IV Q6 HRS PRN DILAUDID IV Q4 HRS PRN MED SURG STATUS DCP;FROM HOME
[2019-11-13 16:00] VITALS: BP 155/65
[2019-11-13] MEDS ORDERED: Tubing IV Secondary IV ONE (18:35)
[2019-11-13] MEDS ORDERED: NS 275ml ONE (18:35)
--- NOTE | 2019-11-13 19:00 | NUR ---
NURSE NOTES: Paged Dr Tyler for patient's request to have a stool softener. Awaiting callback.
--- NOTE | 2019-11-13 19:50 | NUR ---
HAND-OFF: Report given to danielle.
[2019-11-13 20:00] VITALS: BP 127/91
--- NOTE | 2019-11-13 20:05 | NUR ---
NURSE NOTES: RECEIVED PATIENT FROM [facility] BOX. PATIENT IS AWAKE, AAOX4, ON ROOM AIR, NO ACUTE DISTRESS NOTED. PATIENT DENIES PAIN AT THE MOMENT. SKIN IS INTACT. IV ON LEFT FOREARM INTACT AND PATENT. BED IS LOCKED AND LOW, BED ALARMS ACTIVE, SIDE RAILS UP X2, AND CALL LIGHT IS WITHIN REACH. WILL CONTINUE TO MONITOR.
[2019-11-13] MEDS: Iron Sucrose 100 MG in NS 55 ML IV SCH (21:06)
--- NOTE | 2019-11-13 23:31 | General Progress Note ---
Assessment/Plan Assessment/Plan: Assessment - Anemia - s/p gastric bypass - HTN - COPD - Iron deficiency - Elevated CEA Recommendations - IV Fe - monitor labs - H2B - CT Chest / abd/ pelvis in am - Outpatient oral DBE to evaluate excluded stomach Subjective Allergies: Coded Allergies: MEPERIDINE (Verified Allergy, Unknown, 11/10/19) MORPHINE (Unverified Allergy, Unknown, 02/22/16) Subjective d/w patient re EGD/Colon advised needs to see me as outpatient for DBE to evaluate excluded stomach also advised re elevated CEA rec CT C/A/P Objective Last 24 Hour Vital Signs Date Time Temp Pulse Resp B/P (MAP) Pulse Ox O2 Delivery O2 Flow Rate FiO2 11/13/19 16:00 98.0 73 20 155/65 (95) 99 11/13/19 12:00 99.0 76 20 107/70 (82) 97 11/13/19 09:40 88 169/109 11/13/19 09:00 Room Air 11/13/19 08:00 100.2 88 18 169/109 (129) 97 11/13/19 04:33 158/81 11/13/19 04:00 98.7 73 16 158/81 (106) 100 11/13/19 00:00 99.7 84 18 141/96 (111) 97 Intake and Output 11/12/19 11/13/19 19:00 07:00 Intake Total 850 ml 420 ml Balance 850 ml 420 ml Intake Oral 500 ml IV Total 350 ml 60 ml Other 360 ml # Voids 4 4 # Bowel Movements 1 Laboratory Tests 11/13/19 05:40: White Blood Count 11.4#H, Red Blood Count 3.68L, Hemoglobin 8.9L, Hematocrit 28.6L, Mean Corpuscular Volume 78L, Mean Corpuscular Hemoglobin 24.3L, Mean Corpuscular Hemoglobin Concent 31.3L, Red Cell Distribution Width 22.2H, Platelet Count 200, Mean Platelet Volume 6.5, Neutrophils (%) (Auto) 84.5H, Lymphocytes (%) (Auto) 8.8L, Monocytes (%) (Auto) 6.1, Eosinophils (%) (Auto) 0.2, Basophils (%) (Auto) 0.4, Sodium Level 139, Potassium Level 3.7, Chloride Level 102, Carbon Dioxide Level 30, Anion Gap 7, Blood Urea Nitrogen 7, Creatinine 0.8, Estimat Glomerular Filtration Rate > 60, Glucose Level 73L, Calcium Level 9.3, Total Bilirubin 0.8, Aspartate Amino Transf (AST/SGOT) 26, Alanine Aminotransferase (ALT/SGPT) 32, Alkaline Phosphatase 71, Total Protein 6.6, Albumin 3.3L, Globulin 3.3, Albumin/Globulin Ratio 1.0, HIV (1&2) Antibody Rapid Negative Height (Feet): 5 Height (Inches): 7.00 Weight (Pounds): 138 Objective Thin AA woman NCAT supple CTA RRR Abd soft , Flat no edema Swati Sanz MD Nov 13, 2019 23:31
[2019-11-14] VITALS: BP 124/95
--- NOTE | 2019-11-14 01:15 | Progress Note ---
DATE: 11/13/2019 INTERNAL MEDICINE PROGRESS NOTE SUBJECTIVE: The patient is status post panendoscopy. No signs of bleeding noted. Mild fungal changes. The patient's gastric pouch from her surgery is not well evaluated and double balloon endoscopy is recommended as an outpatient. The patient continues on iron replacement. Her CEA level is elevated at 15. OBJECTIVE: HEENT: Temporal wasting. LUNGS: Clear. CARDIAC: Regular. ABDOMEN: Soft. EXTREMITIES: Trace edema. IMPRESSION: 1. Severe weight loss. 2. History of bariatric surgery. 3. Severe iron deficiency. 4. Elevated CEA level. 5. B12 deficiency. PLAN: 1. Vitamin replacement. 2. CT scan of the chest, abdomen, and pelvis. 3. Nutritional support. 4. Outpatient followup with discharge plan following CT scan completion. Martín Tyler M.D. DR: DELORES JOB#: [id number] CC:
[2019-11-14] MEDS: HYDROmorphone 1mg/ml Carpuject IVP PRN ×3 (02:48→11:13)
[2019-11-14 04:00] VITALS: BP 129/87
--- NOTE | 2019-11-14 07:15 | NUR ---
HAND-OFF: Report given to MAJOR Harding.
[2019-11-14 08:00] VITALS: BP 141/83
--- NOTE | 2019-11-14 08:35 | NUR ---
NURSE NOTES: Patient awake and alert and oriented,respirations unlabored.Patient up and attending to ADL,gait is steady.Call light within reach.
[2019-11-14] MEDS: Vitamin B12 1000mcg/ml Inj IM SCH (09:31)
[2019-11-14] MEDS: Nystatin Susp 500,000 units/5ml ORAL SCH ×2 (09:31→13:00)
[2019-11-14] MEDS: Vitamin D 1000 IU Tab ORAL SCH (09:32)
[2019-11-14] MEDS ORDERED: Iron Sucrose 100 MG in NS 55 ML IV ONE (11:00)
[2019-11-14 12:00] VITALS: BP 126/66
--- NOTE | 2019-11-14 15:50 | NUR ---
NURSE NOTES Patient discharge at this time with discharge instructions.patient has discharge paper prescriptions given.Patient has her personal belongings.IV removed but patient refuse to remove here hospital band.patient escorted to her own vehicle.
--- NOTE | 2019-11-14 17:07 | Diagnostic Imaging Report ---
CLINICAL INDICATION: Pain, blood per rectum, history of gastric bypass surgery TECHNIQUE: Patient ingested oral contrast. IV ministration nonionic contrast. Spiral acquisitions obtained through the chest, abdomen, and pelvis. Multiplanar reconstructions were generated. Total dose length product 350 mGycm. CTDIvol(s) 2, 72, 3, 4 mGy. Radiation dose was minimized using automated exposure control COMPARISON: none FINDINGS Chest: The lungs are clear, no infiltrates, effusions, congestion or, masses, or nodules. The heart size is normal. No pericardial effusion. There is mild edema of the mediastinal fat. The included thyroid is unremarkable. No mediastinal or hilar mass or adenopathy demonstrated. No axillary or chest wall mass or adenopathy. There is mild edema of the subcutaneous fat. The bones are unremarkable. Abdomen pelvis: There is suggestion of mild wall thickening of the distal sigmoid. There is a mild degree of colonic stool retention. The appendix is probably identified, probably normal. Ingested contrast has traversed the entirety of the small bowel, reaches the proximal colon. No small bowel distention or small bowel wall thickening. There are postsurgical changes of the stomach. No free or loculated intraperitoneal gas or fluid is evident. The gallbladder is unremarkable. The common bile duct is somewhat ectatic, measuring 10 mm diameter. No definite downstream obstructing lesion is demonstrated. The liver demonstrates scattered subcentimeter low-attenuation lesions which are too small to characterize. The pancreatic duct is mildly ectatic. The pancreas is otherwise unremarkable. The spleen appears unremarkable. The adrenals are not well-demonstrated, grossly unremarkable. The kidneys demonstrate subcentimeter low-attenuation lesions which are too small to characterize. No definite renal or ureteral calculi, hydronephrosis, or hydroureter. Unremarkable bladder. The uterus is equivocally visualized, unremarkable if real. There is generalized edema of the abdominal and subcutaneous fat. The bones demonstrate anterior fusion hardware at L4-5 and L5-S1, and interspinous fusion hardware between the L4 and L5 spinous processes. There is also evidence of a laminotomy defect of L5. IMPRESSION: Evidence of anasarca, with diffuse edema of the subcutaneous and mesenteric fat No acute thoracic abnormality Mild distal sigmoid wall thickening, could indicate mild colitis changes. Mildly prominent retained stool, could indicate constipation, correlate with clinical history Ectatic (10 mm) common bile duct, without definite downstream obstructive lesion. Correlate with liver function tests, consider MRCP for better characterization if clinically indicated Mildly ectatic pancreatic duct, of uncertain but doubtful significance. Correlate with pancreatic enzymes Subcentimeter low-attenuation liver and renal lesions, too small to characterize, most likely benign simple cysts. No further follow-up necessary Evidence of prior spinal fusion The CT scanner at [facility] is accredited by the [employer] and the scans are performed using protocols designed to limit radiation exposure to as low as reasonably achievable to attain images of sufficient resolution adequate for diagnostic evaluation.
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
== END 2019-11-14 15:46 | disposition home or self-care (01) | DRG 812 ==
LOC: EMR 11:13 → EDBEDREQ 12:35 → 2E 13:03 → 4E 11-12 18:18
PROC: 30233N1 Transfusion of Nonautologous Red Blood Cells into Peripheral Vein, Percutaneous Approach (ICD-10-PCS; principal; 2019-11-10)
DX: D50.9 Iron deficiency anemia, unspecified (principal); K62.5 Hemorrhage of anus and rectum; M25.512 Pain in left shoulder; G89.29 Other chronic pain; Z88.6 Allergy status to analgesic agent; Z88.8 Allergy status to other drugs, medicaments and biological substances; Z98.84 Bariatric surgery status; J44.9 Chronic obstructive pulmonary disease, unspecified; I10 Essential (primary) hypertension; Z87.891 Personal history of nicotine dependence; M19.012 Primary osteoarthritis, left shoulder; M15.9 Polyosteoarthritis, unspecified; R97.0 Elevated carcinoembryonic antigen [CEA]; E53.8 Deficiency of other specified B group vitamins
CPT/HCPCS: 36415; 71045; 71046; 71260; 74177; 80053; 81003; 82248; 82306; 82378; 82550; 82607; 82746; 83540; 83550; 83690; 83880; 84443; 84484; 85007; 85025; 85044; 85610; 85730; 86703; 86850; 86900; 86901; 86920; 93005; 94003; 94150; 94640; 96374; 96375; 99291; J2405; J7030; J7620